=== PATIENT | female | born 1935 | race Caucasian/White ===

== ENCOUNTER 2016-09-27 12:54 | Inpatient (IN) | payer OTHER ==
[~2016-09-27] VITALS: Ht 160 cm; Wt 60.7 kg
[~2016-09-27 12:54] MED LIST: ASPIRIN81 M2 PO; COLACE100 MG PO; CONZIP100 MG PO; ESTRACE42.5 GM VG; FERROUS SULFAT325 MG PO; FISH OIL 1,0001 EA10 PO; LOVENOX40 MG/0.4 SC; OS-CAL 500+D31 EACH PO; TYLENOL EXTRA500 MG PO
[2016-09-27] MEDS ORDERED: ASPIR 8181 M1 PO (13:48)
[2016-09-27 14:06] LABS: HEMATOCRIT 37.8 % (36.0-46.0); MCH 29.5 PG (29.0-34.0); MCHC 32.3 G/DL (30.0-36.0); MCV 91.5 FL (83-99); MEAN PLAT.VOLUME 12.4 uM^3 (9.5-12.4); PLATELET COUNT 156 K/uL (156-360); RBC DIS.WIDTH-CV 13.3 % (11.8-14.6); RBC DIS.WIDTH-SD 44.7 % (39-53); RED BLOOD COUNT 4.13 M/uL (3.80-5.20); WHITE BLOOD COUNT 7.8 K/uL (4.1-10.2)
[2016-09-27 14:17] LABS: CHLORIDE 102 mEq/L (99-109); POTASSIUM 4.3 mEq/L (3.7-5.4); SODIUM 139 mEq/L (136-147)
[2016-09-27 14:18] LABS: GLUCOSE 91 mg/dL (70-99)
[2016-09-27 14:20] LABS: ANION GAP 12 MEQ/L (2-14)
[2016-09-27 14:22] LABS: GFR ESTIMATE (CALCULATED) > 59 mL/min/
[2016-09-27 14:23] LABS: UREA NITROGEN (BUN) 16 mg/dL (9-23)
[2016-09-27 14:27] LABS: TROP-I INTERPRETATION NEGATIVE; TROPONIN-I 0.02 ng/mL (0.0-0.30)
[2016-09-27] MEDS ORDERED: TYLENOL REGULA325 MG PO (15:03)
[2016-09-27] MEDS ORDERED: ARTIFICIAL TEAR15 M1 BOTH EYES (15:04)
[2016-09-27] MEDS ORDERED: MIRALAX17 GM PO (15:04)
[2016-09-27 17:26] VITALS: BP 150/63
[2016-09-27 19:16] VITALS: BP 133/78
[2016-09-27 23:00] VITALS: BP 106/56
[2016-09-28 00:27] LABS: METH RESISTANT S AUREUS PCR NEGATIVE (NEGATIVE)
[2016-09-28 00:51] LABS: PROBE CHECK PASS; SPECIMEN PROCESSING CONTROL PASS
[2016-09-28 04:35] VITALS: BP 129/58
[2016-09-28 07:10] LABS: TROP-I INTERPRETATION NEGATIVE; TROPONIN-I 0.05 ng/mL (0.0-0.30)
[2016-09-28 08:30] VITALS: BP 151/67
[2016-09-28 11:44] VITALS: BP 169/72
[2016-09-28 16:20] VITALS: BP 133/65
[2016-09-28 20:17] VITALS: BP 130/65
[2016-09-29 00:32] VITALS: BP 123/57
[2016-09-29 04:25] VITALS: BP 140/68
[2016-09-29 06:32] LABS: EOSINOPHIL COUNT 0.4 K/uL (0-0.3); HEMATOCRIT 36.6 % (36.0-46.0); IMMATURE GRANULOCYTE (%) 0.4 % (0.0-0.7); INSTRUMENT ABS NEUTROPHIL CT 5.1 K/uL; LYMPHOCYTE COUNT 1.7 K/uL (1.0-2.8); MCH 29.2 PG (29.0-34.0); MCHC 32.2 G/DL (30.0-36.0); MCV 90.6 FL (83-99); MEAN PLAT.VOLUME 12.9 uM^3 (9.5-12.4); MONOCYTE (%) 9.3 % (3-12); MONOCYTE COUNT 0.7 K/uL (0-0.8); NEUTROPHIL (%) 63.7 % (45-76); NEUTROPHIL COUNT 5.1 K/uL (1.8-6.4); PLATELET COUNT 152 K/uL (156-360); RBC DIS.WIDTH-CV 13.3 % (11.8-14.6); RBC DIS.WIDTH-SD 44.5 % (39-53); RED BLOOD COUNT 4.04 M/uL (3.80-5.20)
[2016-09-29 06:55] LABS: ANION GAP 8 MEQ/L (2-14); CHLORIDE 106 MEQ/L (99-109); GFR ESTIMATE (CALCULATED) > 59 mL/min/; GLUCOSE 86 mg/dL (70-99); POTASSIUM 3.9 MEQ/L (3.7-5.4); SAMPLE HEMOLYSIS CHECK 0; SAMPLE ICTERIC CHECK 0; SAMPLE LIPEMIA CHECK 0; SODIUM 139 MEQ/L (136-147); UREA NITROGEN (BUN) 14 mg/dL (9-23)
[2016-09-29 07:05] LABS: TROP-I INTERPRETATION NEGATIVE; TROPONIN-I 0.29 ng/mL (0.0-0.30)
[2016-09-29 08:15] VITALS: BP 147/70
[2016-09-29 11:50] VITALS: BP 143/68
== END 2016-09-29 16:00 | disposition home or self-care (01) | DRG 242 ==
LOC: EME 12:54 → 4EAST 15:00 → EDOF 15:00 → 4EAST 15:00 → EDOF 16:25 → 4EAST 17:09
PROVIDERS: Family Medicine; Family Medicine Sports Medicine; Internal Medicine Cardiovascular Disease
PROC: 0JH636Z Insertion of Pacemaker, Dual Chamber into Chest Subcutaneous Tissue and Fascia, Percutaneous Approach (ICD-10-PCS; principal; 2016-09-28)
PROC: 02H63JZ Insertion of Pacemaker Lead into Right Atrium, Percutaneous Approach (ICD-10-PCS; principal; 2016-09-28)
PROC: 02HK3JZ Insertion of Pacemaker Lead into Right Ventricle, Percutaneous Approach (ICD-10-PCS; principal; 2016-09-28)
DX: I44.1 Atrioventricular block, second degree (principal); J69.0 Pneumonitis due to inhalation of food and vomit; R07.89 Other chest pain; R12 Heartburn; R06.09 Other forms of dyspnea; R00.1 Bradycardia, unspecified; F41.9 Anxiety disorder, unspecified; Z96.653 Presence of artificial knee joint, bilateral; I45.10 Unspecified right bundle-branch block; G30.9 Alzheimer's disease, unspecified; F02.80 Dementia in other diseases classified elsewhere, unspecified severity, without behavioral disturbance, psychotic disturbance, mood disturbance, and anxiety; I25.10 Atherosclerotic heart disease of native coronary artery without angina pectoris
CPT/HCPCS: 71010; 71020; 80048; 84484; 85025; 85027; 87641; 93005; 99281; 99285; C1785; C1892; C1894; C1898; J0690; J1200; J1650; J2250; J3010; J7030; S0020; S0028